=== PATIENT | male | born 1985 | race African-American/Black ===

== ENCOUNTER 2024-05-10 12:18 | Day surgery (SDC) | payer BC ==
[2024-05-06 13:20] LABS: Anion Gap 6.2 mEq/L (5.0-15.0); Potassium 4.2 mEq/L (3.5-5.1)
--- NOTE | 2024-05-07 16:36 | EKG ---
Test Date: 2024-05-06 Test Time: 13:24:11 [employer]: KEVEN MEASUREMENT RESULTS: Intervals: Rate: 66 TN: 138 QRSD: 100 QT: 388 QTc: 406 Menard: P: 59 TN: 138 QRS: 9 T: 43 INTERPRETIVE STATEMENTS: Normal sinus rhythm Normal ECG No previous ECG available for comparison Electronically Signed On 05-07-24 16:32:23 CDT by Deyvi Lisa
[2024-05-10] MEDS ORDERED: NA CHLORIDE 0.9% 1,000 ML ONE (12:34)
[2024-05-10] MEDS ORDERED: CEFOXITIN SODIUM 2 GM/VIAL ONE (12:34)
[2024-05-10] MEDS ORDERED: LIDOCAINE HCL/EPINEPHRINE 20 ML MDV ONE (12:50)
[2024-05-10] MEDS ORDERED: dexAMETHasone 10 MG/ML VIAL ONE (13:04)
[2024-05-10] MEDS ORDERED: LIDOCAINE 1% MPF 5 ML VIAL ONE (13:04)
[2024-05-10] MEDS ORDERED: MIDAZOLAM HCL 2 MG/2 ML INJ ONE (13:04)
[2024-05-10] MEDS ORDERED: FENTANYL CITR 100 MCG/2 ML ONE (13:04)
[2024-05-10] MEDS ORDERED: KETOROLAC 30 MG/ML INJ ONE (13:04)
[2024-05-10] MEDS ORDERED: propofoL 200 MG/20 ML VIAL IV ONE (13:04)
[2024-05-10] MEDS ORDERED: ONDANSETRON 4 MG/2 ML VIAL ONE (13:05)
[2024-05-10] MEDS ORDERED: MORPHINE 10 MG/ML VIAL ONE (14:13)
[2024-05-10] MEDS ORDERED: LIDOCAINE JELLY 2% 5 ML SYRINGE TOP ONE (14:16)
--- NOTE | 2024-05-10 14:27 | P.OP ---
Preoperative diagnosis: Grade IV Hemorrhoids Postoperative diagnosis: Grade IV Hemorrhoids Primary procedure: Exam under anesthesia with hemorrhoidectomy Anesthesia: GETA + Local Estimated blood loss: <5cc Specimen: hemorrhoids Findings: Hemorrhoids in 2 columns Complications: None Implants: Gelfoam Transferred to: Recovery Room Condition: Good
[2024-05-10 15:36] VITALS: BP 155/91; TEMP 97.2; O2SAT 99
--- NOTE | 2024-05-11 00:33 | OP ---
Date of Procedure: 05/10/2024 Surgeon: Wander Cowan MD, Preoperative Diagnosis: Grade 4 hemorrhoids. Postoperative Diagnosis: Grade 4 hemorrhoids. Procedures: 1.Exam under anesthesia. 2.Hemorrhoidectomy. Anesthesia: General endotracheal plus local 1% lidocaine with epinephrine. Estimated Blood Loss: Less than 5 cc. Specimen: Hemorrhoids. Findings: Hemorrhoids in 2 columns. Complications: None. Implants: Gel-Foam. Disposition: The patient was transferred to recovery room in good condition. Procedure In Detail: After informed consent was obtained, the patient was brought to the operating r oom, prepped and draped in usual sterile fashion. After adequate anesthesia was achieved, the patien t remained in lithotomy position. I performed digital rectal examination and palpated grade 4 agribusiness internship al hemorrhoids. I then ultimately placed sequentially larger anoscopes into the anal canal and visua lized 2 very large hemorrhoids on the both right and left columns. I demarcated the area around the anoderm to this area after the anoderm in this layer. I ultimately dissected the anoderm away from the musculature underneath using dissection. Ultimately, after this plane was reduced in n ormal anatomic position, I took the hemorrhoid down using LigaSure device. The specimen was then sen t off for pathologic examination. The same process was repeated on the contralateral side and sent o ff for pathologic examination. The area was copiously irrigated. I then injected the area with cely tional 1% lidocaine with epinephrine. I sewed the common defects of the hemorrhoids to reapproximate the anoderm using a 3-0 chromic suture in a running fashion with good approximation of tissues on [place]ul[place] th the right and left columns. I then irrigated the area once again, placed Gel-Foam soaked in lidoc cornell into the anal canal, and a sterile dressing was placed over top. The patient tolerated the proc edure well without incident or complication and transferred to PACU in good condition. All counts we re correct at the end of the case. RUT/CLARISSE Voice ID: [id number] Report ID: [id number]
== END 2024-05-10 16:00 | disposition home or self-care (01) ==
LOC: OR 12:18
PROVIDERS: ATTEND Surgery
PROC: 06BY4ZC Excision of Hemorrhoidal Plexus, Percutaneous Endoscopic Approach (ICD-10-PCS; principal; 2024-05-10 13:45)
DX: K64.3 Fourth degree hemorrhoids (principal); E11.65 Type 2 diabetes mellitus with hyperglycemia
CPT/HCPCS: 93005; 80048; 36415; 82947 ×2; 46260; J2704; J2001; J2250; J3010; J1100; J0694; J2405; J7030; 88304